=== PATIENT | female | born 1925 | race Caucasian/White ===

== ENCOUNTER 2017-07-29 09:19 | Inpatient (IN) | payer OTHER, BC ==
--- NOTE | 2017-07-29 10:17 | PDOC ---
History of Present Illness - General History Source: Patient Exam Limitations: No Limitations - History of Present Illness Initial Comments: 07/29/17 10:46 The patient is a 89 year old female, with a significant past medical history of HTN, HLD, Gout, Anemia who presents to the emergency department sent in by PCP for low H&H. Patient visited PCP for routine labs one week ago however was called yesterday and was informed of low hemoglobin of 7.4. Patient states she was very active this past weekend however denies any complaints. Patient presents with her daughter to the ED for further evaluation. Upon arrival, vital signs significant for 52 pulse. Patient denies lightheadedness, chest pain, headache or dizziness. Patient denies fever, chills, abdominal pain, nausea, vomit, diarrhea or constipation, bloody stool, melena. Patient denies dysuria, frequency, urgency or hematuria. Allergies: Penicillins Past surgical history: Appendectomy Social history: None PCP: Dr. Davy Duarte <Krystle Judge - Last Filed: 07/29/17 11:10> <Mylene Bain - Last Filed: 07/31/17 08:12> - General Chief Complaint: Blood Transfusion Stated Complaint: LAB VARIANCE (PCP SENT) Time Seen by Provider: 07/29/17 09:45 Past History <Krystle Judge - Last Filed: 07/29/17 11:10> - Past Medical History HTN: Yes Hypercholesterolemia: Yes - Surgical History Appendectomy: Yes Orthopedic Surgery: Yes - Immunization History Immunization Up to Date: Yes - Psycho/Social/Smoking Cessation Hx Anxiety: No Suicidal Ideation: No Smoking Status: No Smoking History: Never smoked Have you smoked in the past 12 months: No Number of Cigarettes Smoked Daily: 0 Information on smoking cessation initiated: No Hx Alcohol Use: No Drug/Substance Use Hx: No Substance Use Type: None <Mylene Bain - Last Filed: 07/31/17 08:12> - Past Medical History Allergies/Adverse Reactions: Allergies Allergy/AdvReac Type Severity Reaction Status Date / Time Penicillins Allergy Mild Rash Verified 07/29/17 09:25 Home Medications: Ambulatory Orders Allopurinol [Zyloprim -] 100 mg PO BID 07/29/17 Aspirin [ASA -] 81 mg PO DAILY 07/29/17 Brimonidine Tartrate [Alphagan 0.15% -] 1 drop OU TID 07/29/17 Calcium Carbonate/Vitamin D3 [Calcium 600+D Softgel] 1 each PO DAILY 07/29/17 Cephalexin [Keflex] 500 mg PO TID 07/29/17 Cholecalciferol (Vitamin D3) [Vitamin D3 -] 2,000 unit PO DAILY 07/29/17 Cyanocobalamin/FA/Pyridoxine [Virt-Sary Tablet] 1 each PO DAILY 07/29/17 Furosemide 20 mg PO DAILY 07/29/17 Hydralazine HCl [Apresoline -] 25 mg PO BID 07/29/17 Metoprolol Succinate [Toprol Xl -] 25 mg PO DAILY 07/29/17 Potassium Chloride [K-Dur -] 10 meq PO DAILY 07/29/17 Rosuvastatin Calcium [Crestor] 5 mg PO DAILY 07/29/17 Valsartan [Diovan] 160 mg PO DAILY 07/29/17 Review of Systems - Review of Systems Able to Perform ROS?: Yes Comments:: 07/29/17 10:46 GENERAL/CONSTITUTIONAL: No fever or chills. No weakness. HEAD, EYES, EARS, NOSE AND THROAT: No change in vision. No ear pain or discharge. No sore throat. GASTROINTESTINAL: No nausea, vomiting, diarrhea or constipation. GENITOURINARY: No dysuria, frequency, or change in urination. CARDIOVASCULAR: No chest pain or shortness of breath. RESPIRATORY: No cough, wheezing, or hemoptysis. MUSCULOSKELETAL: No joint or muscle swelling or pain. No neck or back pain. SKIN: No rash NEUROLOGIC: No headache, vertigo, loss of consciousness, or change in strength/ sensation. ENDOCRINE: No increased thirst. No abnormal weight change. HEMATOLOGIC/LYMPHATIC: No anemia, easy bleeding, or history of blood clots. ALLERGIC/IMMUNOLOGIC: No hives or skin allergy. <Krystle Judge - Last Filed: 07/29/17 11:10> *Physical Exam - Vital Signs Last Vital Signs Temp Pulse Resp BP Pulse Ox 97.6 F 52 L 18 153/63 99 07/29/17 09:25 07/29/17 09:25 07/29/17 09:25 07/29/17 09:25 07/29/17 09:25 - Physical Exam Comments: 07/29/17 11:10 GENERAL: Awake, alert, and fully oriented, in no acute distress HEAD: No signs of trauma EYES: PERRLA, EOMI, sclera anicteric, conjunctiva clear ENT: Auricles normal inspection, hearing grossly normal, nares patent, oropharynx clear without exudates. Moist mucosa NECK: Normal ROM, supple, no lymphadenopathy, JVD, or masses LUNGS: Breath sounds equal, clear to auscultation bilaterally. No wheezes, and no crackles HEART: +Bradycardic. Normal S1 and S2, no murmurs, rubs or gallops ABDOMEN: Soft, nontender, normoactive bowel sounds. No guarding, no rebound. No masses EXTREMITIES: Normal range of motion, no edema. No clubbing or cyanosis. No cords, erythema, or tenderness NEUROLOGICAL: Cranial nerves II through XII grossly intact. Normal speech, normal gait SKIN: Warm, Dry, normal turgor, no rashes or lesions noted. <Krystle Judge - Last Filed: 07/29/17 11:10> - Vital Signs Last Vital Signs Temp Pulse Resp BP Pulse Ox 97.6 F 52 L 18 153/63 99 07/29/17 09:25 07/29/17 09:25 07/29/17 09:25 07/29/17 09:25 07/29/17 09:25 - Physical Exam Comments: RECTAL: No masses. +Brown stool. <Mylene Bain - Last Filed: 07/31/17 08:12> ED Treatment Course - LABORATORY CBC & Chemistry Diagram: 07/29/17 10:10 07/29/17 10:10 - ADDITIONAL ORDERS Additional order review: Laboratory Results 07/29/17 10:10 Sodium 141 Potassium 4.4 Chloride 107 Carbon Dioxide 28 Anion Gap 6 L BUN 24 H D Creatinine 1.2 H Creat Clearance w eGFR 42.30 Random Glucose 81 Calcium 9.2 AST 16 D ALT 16 D Albumin 3.4 07/29/17 10:10 RBC 3.21 L D MCV 74.0 L MCHC 31.0 L RDW 17.9 H D MPV 7.9 Neutrophils % 67.8 Lymphocytes % 19.6 D Monocytes % 9.3 Eosinophils % 2.0 Basophils % 1.3 D <Krystle Judge - Last Filed: 07/29/17 11:10> - LABORATORY CBC & Chemistry Diagram: 07/30/17 07:40 07/30/17 07:40 <Mylene Bain - Last Filed: 07/31/17 08:12> Medical Decision Making - Medical Decision Making Pt with new onset anemia. Anemia workup pending, guaiac negative. D/w Dr. Au for admission. <Mylene Bain - Last Filed: 07/31/17 08:12> *DC/Admit/Observation/Transfer - Attestations Scribe Attestion: 07/29/17 10:46 Documentation prepared by Krystle Judge, acting as medical record technician for Mylene Bain MD <Krystle Judge - Last Filed: 07/29/17 11:10> - Discharge Dispostion Admit: Yes <Mylene Bain - Last Filed: 07/31/17 08:12> Diagnosis at time of Disposition: Anemia Qualifiers: Anemia type: iron deficiency Iron deficiency anemia type: unspecified iron deficiency Qualified Code(s): D50.9 - Iron deficiency anemia, unspecified - Discharge Dispostion Condition at time of disposition: Stable - Referrals
[2017-07-29 10:24] LABS: BASOPHIL 1.3 % (0-2.0); MEAN PLT VOLUME 7.9 fl (7.5-11.1); NEUTROPHILS 67.8 % (42.8-82.8); PLATELET COUNT 292 K/MM3 (134-434); RDW 17.9 % (11.6-15.6); WHITE BLOOD COUNT 8.2 K/mm3 (4.0-10.0)
[2017-07-29 10:42] LABS: ALBUMIN 3.4 g/dl (3.4-5.0); ANION GAP 6 (8-16); CALCIUM 9.2 mg/dL (8.5-10.1); CO2 28 mmol/L (21-32); CREATININE 1.2 mg/dL (0.55-1.02); GLUCOSE,RANDOM 81 mg/dL (74-106); SGOT/AST 16 U/L (15-37); SGPT/ALT 16 U/L (12-78)
[2017-07-29 10:44] LABS: INR 1.04 (0.82-1.09); PROTHROMBIN TIME (PATIENT) 11.4 SEC (9.98-11.88)
[2017-07-29 10:45] LABS: ALK PHOS 45 U/L (45-117); BILIRUBIN,TOTAL 0.3 mg/dL (0.2-1.0); CPK 99 IU/L (26-192); LDH 202 U/L (84-246); TOT PROT 6.7 g/dl (6.4-8.2)
[2017-07-29 10:51] LABS: TROPONIN I 0.02 ng/ml (0.00-0.05)
[2017-07-29 13:57] LABS: URINE APPEARANCE CLOUDY; URINE BILIRUBIN NEGATIVE (NEGATIVE); URINE BLOOD NEGATIVE (NEGATIVE); URINE COLOR LTYELLOW; URINE GLUCOSE (UA) NEGATIVE (NEGATIVE); URINE KETONE NEGATIVE (NEGATIVE); URINE NITRITE NEGATIVE (NEGATIVE); URINE PROTEIN NEGATIVE (NEGATIVE); URINE UROBILINOGEN NEGATIVE mg/dL (0.2-1.0)
[2017-07-29 14:04] LABS: URINE LEUK ESTERASE 3+ (NEGATIVE)
[2017-07-29 14:06] LABS: URINE HYALINE CAST 3 /lpf; URINE MUCUS RARE; URINE RBC 5 /hpf (0-3); URINE WBC 308 /hpf (3-5)
[2017-07-29] MEDS ORDERED: ACETAMINOPHEN 325 MG TABLET (FP) PO PRN (15:11)
[2017-07-29] MEDS ORDERED: ONDANSETRON 4 MG/2 ML VIAL IVPB PRN (15:11)
--- NOTE | 2017-07-29 15:16 | HP ---
Admitting History and Physical - Primary Care Physician PCP: Davy Duarte - Admission Chief Complaint: I feel fine History of Present Illness: Ms Rivers is a very pleasant 89 year old female who comes in after being found to have anemia. She is without complaint and says she feels fine. She denies fevers , chills, lightheadedness, dizziness, chest pain or pressure, shortness of breath, nausea, vomiting, diarrhea, constipation, melena, hematochezia, difficulty or pain on urination, hematuria, or swelling. History Source: Patient Limitations to Obtaining History: No Limitations - Past Medical History Cardiovascular: Yes: HTN, Hyperlipdemia Rheumatology: Yes: Gout - Past Surgical History Past Surgical History: Yes: Joint Replacement (L-TKA) - Smoking History Smoking history: Never smoked Have you smoked in the past 12 months: No Aproximately how many cigarettes per day: 0 - Alcohol/Substance Use Hx Alcohol Use: No History of Substance Use: reports: None - Social History Usual Living Arrangement: Yes: Alone ADL: Independent History of Recent Travel: No Home Medications - Allergies Allergies/Adverse Reactions: Allergies Allergy/AdvReac Type Severity Reaction Status Date / Time Penicillins Allergy Mild Rash Verified 07/29/17 09:25 - Home Medications Home Medications: Ambulatory Orders Allopurinol [Zyloprim -] 100 mg PO BID 07/29/17 Aspirin [ASA -] 81 mg PO DAILY 07/29/17 Brimonidine Tartrate [Alphagan 0.15% -] 1 drop OU TID 07/29/17 Calcium Carbonate/Vitamin D3 [Calcium 600+D Softgel] 1 each PO DAILY 07/29/17 Cephalexin [Keflex] 500 mg PO TID 07/29/17 Cholecalciferol (Vitamin D3) [Vitamin D3 -] 2,000 unit PO DAILY 07/29/17 Cyanocobalamin/FA/Pyridoxine [Virt-Sary Tablet] 1 each PO DAILY 07/29/17 Furosemide 20 mg PO DAILY 07/29/17 Hydralazine HCl [Apresoline -] 25 mg PO BID 07/29/17 Metoprolol Succinate [Toprol Xl -] 25 mg PO DAILY 07/29/17 Potassium Chloride [K-Dur -] 10 meq PO DAILY 07/29/17 Rosuvastatin Calcium [Crestor] 5 mg PO DAILY 08/29/17 Valsartan [Diovan] 160 mg PO DAILY 07/29/17 Family Disease History - Family Disease History Family Disease History: CA: Sister Review of Systems Findings/Remarks: full review of systems obtained, as per HPI and otherwise negative Physical Examination Vital Signs: Vital Signs Temperature 36.9 C 07/29/17 13:40 Pulse Rate 55 L 07/29/17 13:40 Respiratory Rate 18 07/29/17 13:40 Blood Pressure 154/56 07/29/17 13:40 O2 Sat by Pulse Oximetry (%) 97 07/29/17 13:40 Constitutional: Yes: Well Nourished, No Distress, Calm Eyes: Yes: Conjunctiva Clear, EOM Intact, PERRL HENT: Yes: Atraumatic, Normocephalic Cardiovascular: Yes: Regular Rate and Rhythm. No: Gallop, Murmur, Rub Respiratory: Yes: Regular, CTA Bilaterally. No: Rales, Rhonchi, Wheezes Gastrointestinal: Yes: Normal Bowel Sounds, Soft. No: Distention, Tenderness Extremities: Yes: WNL Edema: No Labs: Laboratory Results - last 24 hr 07/29/17 07/29/17 07/29/17 10:10 10:10 10:10 WBC 8.2 RBC 3.21 L D Hgb 7.4 L D Hct 23.7 L D MCV 74.0 L MCH 23.0 L MCHC 31.0 L RDW 17.9 H D Plt Count 292 MPV 7.9 Neutrophils % 67.8 Lymphocytes % 19.6 D Monocytes % 9.3 Eosinophils % 2.0 Basophils % 1.3 D Retic Count INR 1.04 Sodium 141 Potassium 4.4 Chloride 107 Carbon Dioxide 28 Anion Gap 6 L BUN 24 H D Creatinine 1.2 H Creat Clearance w eGFR 42.30 Random Glucose 81 Calcium 9.2 Ferritin 4.450 L Total Bilirubin 0.3 D AST 16 D ALT 16 D Alkaline Phosphatase 45 D LD Total 202 Creatine Kinase 99 Troponin I 0.02 Total Protein 6.7 Albumin 3.4 Urine Color Urine Appearance Urine pH Urine Protein Urine Glucose (UA) Urine Ketones Urine Blood Urine Nitrite Urine Bilirubin Urine Urobilinogen Ur Leukocyte Esterase Urine RBC Urine WBC Ur Epithelial Cells Hyaline Casts Urine Mucus Stool Occult Blood Blood Type Antibody Screen Crossmatch 07/29/17 07/29/17 07/29/17 10:10 10:24 11:37 WBC RBC Hgb Hct MCV MCH MCHC RDW Plt Count MPV Neutrophils % Lymphocytes % Monocytes % Eosinophils % Basophils % Retic Count 1.30 INR Sodium Potassium Chloride Carbon Dioxide Anion Gap BUN Creatinine Creat Clearance w eGFR Random Glucose Calcium Ferritin Total Bilirubin AST ALT Alkaline Phosphatase LD Total Creatine Kinase Troponin I Total Protein Albumin Urine Color Urine Appearance Urine pH Urine Protein Urine Glucose (UA) Urine Ketones Urine Blood Urine Nitrite Urine Bilirubin Urine Urobilinogen Ur Leukocyte Esterase Urine RBC Urine WBC Ur Epithelial Cells Hyaline Casts Urine Mucus Stool Occult Blood Negative Blood Type A POSITIVE Antibody Screen Negative Crossmatch See Detail 07/29/17 13:40 WBC RBC Hgb Hct MCV MCH MCHC RDW Plt Count MPV Neutrophils % Lymphocytes % Monocytes % Eosinophils % Basophils % Retic Count INR Sodium Potassium Chloride Carbon Dioxide Anion Gap BUN Creatinine Creat Clearance w eGFR Random Glucose Calcium Ferritin Total Bilirubin AST ALT Alkaline Phosphatase LD Total Creatine Kinase Troponin I Total Protein Albumin Urine Color Ltyellow Urine Appearance Cloudy Urine pH 7.0 Urine Protein Negative Urine Glucose (UA) Negative Urine Ketones Negative Urine Blood Negative Urine Nitrite Negative Urine Bilirubin Negative Urine Urobilinogen Negative Ur Leukocyte Esterase 3+ H Urine RBC 5 Urine WBC 308 Ur Epithelial Cells Rare Hyaline Casts 3 Urine Mucus Rare Stool Occult Blood Blood Type Antibody Screen Crossmatch Imaging - Results Chest X-ray: Report Reviewed, Image Reviewed Problem List - Problems (1) Anemia Assessment/Plan: -patient presents with newly found microcytic anemia -without symptoms, suspect slowly decreasing over time -admit under observation -transfused -hematology and GI consult Code(s): D64.9 - ANEMIA, UNSPECIFIED Qualifiers: Anemia type: unspecified type Qualified Code(s): D64.9 - Anemia, unspecified (2) Hyperlipidemia Assessment/Plan: -continue crestor Code(s): E78.5 - HYPERLIPIDEMIA, UNSPECIFIED Qualifiers: Hyperlipidemia type: Pure hypercholesterolemia (3) Hypertension Assessment/Plan: -slightly elevated -continue valsartan, hydralazine, toprol xl, and lasix -may elevate more secondary to transfusion Code(s): I10 - ESSENTIAL (PRIMARY) HYPERTENSION Qualifiers: Hypertension type: essential hypertension (4) Gout Assessment/Plan: -not in exacerbation -continue allopurinol Code(s): M10.9 - GOUT, UNSPECIFIED (5) Sterile pyuria Assessment/Plan: -seen on urinalysis -check culture -will not place on antibiotics currently Code(s): N39.0 - URINARY TRACT INFECTION, SITE NOT SPECIFIED
[2017-07-29 16:27] VITALS: BMI 23.9
[2017-07-29] MEDS ORDERED: hydrALAZINE HCL 25 MG TABLET (FP) ONE (16:34)
[2017-07-29] MEDS ORDERED: hydrALAZINE HCL 25 MG TABLET (FP) PO ONE (16:55)
--- NOTE | 2017-07-29 17:14 | EKG ---
Test Reason : Blood Pressure : / mmHG Vent. Rate : 051 BPM Atrial Rate : 051 BPM P-R Int : 420 ms QRS Dur : 086 ms QT Int : 446 ms P-R-T Axes : 074 012 069 degrees QTc Int : 411 ms SINUS BRADYCARDIA WITH 1ST DEGREE A-V BLOCK NONSPECIFIC ST ABNORMALITY ABNORMAL ECG WHEN COMPARED WITH ECG OF 25-FEB-2016 06:52, PERSISTANT ST DEPRESSIONS IN PRECORDIAL LEADS REPEAT EKG IF CLINICALLY INDICATED Confirmed by OTTONIEL TSAI MD ([id number]) on 07/29/2017 5:14:10 PM Referred By: Confirmed By:OTTONIEL TSAI MD
--- NOTE | 2017-07-29 19:43 | PN ---
Progress Note (short form) - Note Progress Note: Consult dictated 89 year old presents with hypochromic ,microcytic anemia with Hct--23.7%. Ferritin -4.45. Additional Fe++ studies pending. Stool guaic negative. Diagnosis - IRON Deficiency Will need GI assessment. Will check TFT's and celiac panel. Will give IV Venofer.
[2017-07-29] MEDS ORDERED: PT OWN MED DRAWER 7, Y5N ONE (20:09)
[2017-07-29] MEDS: BRIMONIDINE TARTRATE 0.15% OPHTHALMIC 5 ML BOTTLE OU SCH (22:35)
[2017-07-29] MEDS: hydrALAZINE HCL 25 MG TABLET (FP) PO SCH (22:37)
[2017-07-29] MEDS: DOCUSATE SODIUM 100 MG CAPSULE (FP) PO SCH (22:38)
[2017-07-29] MEDS: ALLOPURINOL 100 MG TABLET (FP) PO SCH (22:38)
--- NOTE | 2017-07-29 23:05 | CONS ---
DATE OF CONSULTATION: 07/29/2017 HISTORY OF PRESENT ILLNESS: This 89-year-old female enters with hypochromic microcytic anemia. Patient has a low ferritin of less than 5. SOCIAL HISTORY: The patient is , has 2 children. Worked in an office type job. Nonsmoker, nondrinker. No industrial exposures or intoxicants. FAMILY HISTORY: Father of lung cancer, and a brother who of cancer, questionable type. PAST MEDICAL HISTORY: Includes hypertension, hyperlipidemia. Patient denies diabetes, stroke, [place], hepatitis, gallbladder disease, thyroid disease, kidney disease, TB or gout. SURGICAL HISTORY: Left total knee replacement and appendectomy. ALLERGIES: Include PENICILLIN. REVIEW OF SYSTEMS: No headaches, diplopia, epistaxis, dysphagia, shortness of breath, chest pain, palpitations, nausea, vomiting, diarrhea, constipation, melena, dysuria, hematuria, vaginal bleeding. Some arthritic pains, myalgias and arthralgias. CURRENT PHYSICAL EXAMINATION: Vital signs: Weight 131, blood pressure 177/72, pulse 57 regular, respiratory rate 20, afebrile. HEENT: ALKA, EOM intact. Upper partial plate. Papillated tongue. Neck: Supple. No thyromegaly. No cervical supraclavicular nodes. Lungs: Relatively clear to percussion and auscultation. Cardiac: Regular rhythm. Breasts: No dominant masses. Abdomen: Soft. No organomegaly. Extremities: Patient's lower extremities, total knee replacement surgery. LABORATORY: As available. Sodium 141, potassium 4.4, chloride 107, CO2 of 28, BUN 24, creatinine 1.2. Iron studies pending. Ferritin 4.45, bilirubin 0.38, AST 16, ALT 16, alkaline phosphatase 45, LDH 202, protein 6.7, albumin 3.4. WBC 8.2, hematocrit 23.7, hemoglobin 7.4, MCV 74, MCH 23, 293,000 platelets, 68 polycytes, 20 lymphocytes, 9 monocytes, reticulocyte 1.3. Urine 3+ leukocyte esterase, occult blood stool negative. Chest x-ray, moderately enlarged heart. Perihilar increased markings, moderate atelectatic changes right lung base, old right rib fracture. IMPRESSION: An 89-year-old female presents with hypochromic microcytic indices, low ferritin. Diagnosis of iron deficiency anemia. Will need gastrointestinal consultation. Will check celiac panel. Will check thyroid function. Will give IV Venofer as iron studies are currently pending. JANE SMART M.D. [id number]
[2017-07-30 06:09] LABS: HAPTOGLOBIN 277 mg/dL (34-200); SERUM IRON 15 ug/dL (27-139); TOTAL IRON BINDING CAPACITY 400 ug/dL (250-450); TRANSFERRIN 336 mg/dL (200-370); UIBC 385 ug/dL (118-369)
[2017-07-30] MEDS: BRIMONIDINE TARTRATE 0.15% OPHTHALMIC 5 ML BOTTLE OU SCH ×3 (06:21→21:13)
[2017-07-30 07:54] LABS: BASOPHIL 1.1 % (0-2.0); EOSINOPHIL 2.2 % (0-4.5); MCH 24.4 pg (25.7-33.7); MCHC 32.2 g/dl (32.0-36.0); MEAN CELL VOLUME 75.7 fl (80-96); MEAN PLT VOLUME 7.8 fl (7.5-11.1); PLATELET COUNT 250 K/MM3 (134-434); RDW 18.2 % (11.6-15.6); WHITE BLOOD COUNT 7.5 K/mm3 (4.0-10.0)
[2017-07-30 08:16] LABS: ANION GAP 6 (8-16); CALCIUM 8.8 mg/dL (8.5-10.1); CO2 27 mmol/L (21-32); GLUCOSE,RANDOM 93 mg/dL (74-106); MAGNESIUM 2.1 mg/dL (1.8-2.4); PHOSPHOROUS 3.2 mg/dL (2.5-4.9)
[2017-07-30 08:25] LABS: THYROID STIMULATING HORMONE 1.36 uIU/ml (0.358-3.74)
[2017-07-30] MEDS: VALSARTAN 160 MG TABLET (UD) PO SCH (09:11)
[2017-07-30] MEDS: POTASSIUM CHLORIDE TABS 10 MEQ TABLET.ER (FP) PO SCH (09:11)
[2017-07-30] MEDS: DOCUSATE SODIUM 100 MG CAPSULE (FP) PO SCH ×2 (09:11→21:14)
[2017-07-30] MEDS: CHOLECALCIFEROL (VITAMIN D3) 1,000 UNIT TABLET (FP) PO SCH (09:11)
[2017-07-30] MEDS: CALCIUM 500MG/VIT-D 200 UNITS COMBO TABLET (FP) PO SCH (09:11)
[2017-07-30] MEDS: ALLOPURINOL 100 MG TABLET (FP) PO SCH ×2 (09:11→21:14)
[2017-07-30] MEDS: METOPROLOL SUCCINATE 25 MG TAB.SR.24H (FP) PO SCH (09:12)
[2017-07-30] MEDS: PANTOPRAZOLE 40 MG TABLET (FP) PO SCH (09:12)
[2017-07-30] MEDS: FUROSEMIDE 20 MG TABLET (FP) PO SCH (09:12)
[2017-07-30] MEDS: hydrALAZINE HCL 25 MG TABLET (FP) PO SCH ×2 (09:12→21:14)
[2017-07-30] MEDS: [UNRECOGNIZED DRUG - OTHER] PO SCH (09:13)
[2017-07-30] MEDS: POLYETHYLENE GLYCOL 3350 119 GM BTL PO SCH (09:16)
--- NOTE | 2017-07-30 09:46 | CON.GI ---
Consult Consult Specialty:: Gastroenterology Reason for Consultation:: Anemia - History of Present Illness History of Present Illness: 89yo F with history of HTN, HLD, and gout who was sent by her PCP, Dr. Duarte, for a low H/H of 7.4 and 23.7 respectively. Pt states she did not feel any symptoms at the time of initial presentation to the ED. She received 2 transfusions yesterday without any noted reaction. Pt states that she does not remember the last colonoscopy that she received. Only NSAID use is ASA 81mg daily. Denies any other blood thinners or NSAIDs used. Currently denies any lightheadedness, dizziness, abdominal pain, changes in diet, changes in bowel habits, blood noted in stool, urinary complaints including dysuria and polyuria. Pt has never had previous GI bleed or blood transfusion. Denies any previous malignancies PCP: Dr. Duarte Allergy: Penicillin (Mild, Rash) - History Source History Provided By: Patient Limitations to Obtaining History: No Limitations - Past Medical History Cardio/Vascular: Yes: HTN, Hyperlipdemia Rheumatology: Yes: Gout - Past Surgical History Past Surgical History: Yes: Appendectomy, Joint Replacement (L-TKA) - Alcohol/Substance Use Hx Alcohol Use: No History of Substance Use: reports: None - Smoking History Smoking history: Never smoked Have you smoked in the past 12 months: No Aproximately how many cigarettes per day: 0 - Social History ADL: Independent History of Recent Travel: No Home Medications - Allergies Allergies/Adverse Reactions: Allergies Allergy/AdvReac Type Severity Reaction Status Date / Time Penicillins Allergy Mild Rash Verified 07/29/17 09:25 - Home Medications Home Medications: Ambulatory Orders Allopurinol [Zyloprim -] 100 mg PO BID 07/29/17 Aspirin [ASA -] 81 mg PO DAILY 07/29/17 Brimonidine Tartrate [Alphagan 0.15% -] 1 drop OU TID 07/29/17 Calcium Carbonate/Vitamin D3 [Calcium 600+D Softgel] 1 each PO DAILY 07/29/17 Cephalexin [Keflex] 500 mg PO TID 07/29/17 Cholecalciferol (Vitamin D3) [Vitamin D3 -] 2,000 unit PO DAILY 07/29/17 Cyanocobalamin/FA/Pyridoxine [Virt-Sary Tablet] 1 each PO DAILY 07/29/17 Furosemide 20 mg PO DAILY 07/29/17 Hydralazine HCl [Apresoline -] 25 mg PO BID 07/29/17 Metoprolol Succinate [Toprol Xl -] 25 mg PO DAILY 07/29/17 Potassium Chloride [K-Dur -] 10 meq PO DAILY 07/29/17 Rosuvastatin Calcium [Crestor] 5 mg PO DAILY 07/29/17 Valsartan [Diovan] 160 mg PO DAILY 07/29/17 Family Disease History - Family Disease History Family Disease History: CA: Father (Lung Ca), Brother (Stage 4 on dx), Sister Review of Systems - Review of Systems Constitutional: reports: No Symptoms Respiratory: reports: No Symptoms Gastrointestinal: reports: No Symptoms Genitourinary: reports: No Symptoms Neurological: reports: No Symptoms Hematology/Lymphatic: reports: No Symptoms Physical Exam-GI Vital Signs: Vital Signs Temperature 98.0 F 07/30/17 06:00 Pulse Rate 45 L 07/30/17 06:00 Respiratory Rate 18 07/30/17 06:00 Blood Pressure 152/54 07/30/17 06:00 O2 Sat by Pulse Oximetry (%) 96 07/30/17 01:06 Constitutional: Yes: Well Nourished, No Distress, Calm Eyes: Yes: Conjunctiva Clear, EOM Intact, PERRL. No: Sclera Icterus HENT: Yes: Atraumatic, Normocephalic Cardiovascular: Yes: Bradycardia, S1, S2. No: Murmur Respiratory: Yes: Regular, CTA Bilaterally. No: Rales, Rhonchi, SOB, Wheezes Gastrointestinal Inspection: Yes: WNL ...Auscultate: Yes: Normoactive Bowel Sounds ...Palpate: Yes: Soft. No: Hepatomegaly, Splenomegaly, Tenderness, Tenderness, Rebound ...Rectal Exam: Yes: Guaiac Negative, Sphincter Tone Normal Edema: No Peripheral Pulses WNL: Yes Neurological: Yes: Alert, Oriented Psychiatric: Yes: Alert, Oriented Labs: CBC, BMP 07/30/17 07:40 07/30/17 07:40 INR, PTT INR 1.04 (0.82-1.09) 07/29/17 10:10 Imaging - Results Chest X-ray: Image Reviewed EKG: Image Reviewed (Bradycardia noted; existing ST depressions when compared to previous ECG) Problem List - Problems (1) Anemia Assessment/Plan: --Microcytic anemia most likely high component from iron deficiency anemia --Hematology giving Iron --S/P 2U PRBC transfused with appropriate increase in H/H to 9.1 (delta 7.4) --Guaic negative --Discussed possibility of doing EGD or colonoscopy and pt would like to discuss with family. Code(s): D64.9 - ANEMIA, UNSPECIFIED Qualifiers: Anemia type: unspecified type Qualified Code(s): D64.9 - Anemia, unspecified Assessment/Plan ATTENDING PHYSICIAN STATEMENT I saw and evaluated the patient. I reviewed the resident's note and discussed the case with the resident. I agree with the resident's findings and plan as documented. SUBJECTIVE: 89 y/o F sent in by PMD for evaluation of asymptomatic anemia No focal GI complaints OBJECTIVE: Anicteric Hrt RRR + murmur LSB Lungs: CTA b/l Abd: Sft, NT/ND +BS Ext: no edema ASSESSMENT: Iron deficiency anemia Guaiac negative Plan: Disucssed both EGD and colonoscopy with Ms. Rivers to exclude intraluminal pathology such as ulcers, bleeding blood vessels or cancers of the intestinal tract such as colon cancer that may contribute to iron deficiency. We discussed potential risks of the procedure like but not limited to bleeding, perforation, infection, sedation medication effects all of which could be potentially life threatening. She did not consent for the procedures and stated that she wouldf like to think about this option. I advised that she discuss things with her family as well. Please recall if amenable to procedures , otherwise can follow-up in Dr. Christianson's office. [phone] For now: Heme following: giving IV iron Agree with celiac serologies Thank you
[2017-07-30] MEDS ORDERED: IRON SUCROSE INJECTION 100 MG in SODIUM CHLORIDE 95 ML IVPB ONE (10:00)
--- NOTE | 2017-07-30 13:27 | PN ---
Progress Note, Physician Chief Complaint: Ms Rivers says she is feeling better than she did yesterday. No cp, sob, n/v. Says she is more energetic today. - Current Medication List Current Medications: Active Medications Acetaminophen (Tylenol -) 650 mg PO Q4H PRN PRN Reason: FEVER OR PAIN Allopurinol (Zyloprim -) 100 mg PO BID [facility] Last Admin: 07/30/17 09:11 Dose: 100 mg Brimonidine Tartrate (Alphagan 0.15% -) 1 drop OU TID [facility] Last Admin: 07/30/17 06:21 Dose: 1 drop Calcium Carbonate/Cholecalciferol (Os-Isma 500+D -) 1 tab PO DAILY [facility] Last Admin: 07/30/17 09:11 Dose: 1 tab Cholecalciferol (Vitamin D3 -) 2,000 unit PO DAILY [facility] Last Admin: 07/30/17 09:11 Dose: 2,000 unit Docusate Sodium (Colace -) 100 mg PO BID [facility] Last Admin: 07/30/17 09:11 Dose: 100 mg Furosemide (Lasix -) 20 mg PO DAILY [facility] Last Admin: 07/30/17 09:12 Dose: 20 mg Hydralazine HCl (Apresoline -) 25 mg PO BID [facility] Last Admin: 07/30/17 09:12 Dose: 25 mg Metoprolol Succinate (Toprol Xl -) 25 mg PO DAILY [facility] Last Admin: 07/30/17 09:12 Dose: 25 mg Pt Own Medication [ (Virt-Sary Tablet]) 1 each PO DAILY [facility] Last Admin: 07/30/17 09:13 Dose: 1 each Ondansetron HCl (Zofran Injection) 4 mg IVPB Q6H PRN PRN Reason: NAUSEA Pantoprazole Sodium (Protonix -) 40 mg PO DAILY [facility] Last Admin: 07/30/17 09:12 Dose: 40 mg Polyethylene Glycol (Miralax (For Daily Use) -) 17 gm PO DAILY [facility] Last Admin: 07/30/17 09:16 Dose: Not Given Potassium Chloride (K-Dur -) 10 meq PO DAILY [facility] Last Admin: 07/30/17 09:11 Dose: 10 meq Rosuvastatin Calcium (Crestor -) 5 mg PO [facility] Valsartan (Diovan -) 160 mg PO DAILY [facility] Last Admin: 07/30/17 09:11 Dose: 160 mg - Objective Vital Signs: Vital Signs Temperature 36.8 C 07/30/17 10:00 Pulse Rate 58 L 07/30/17 10:00 Respiratory Rate 18 07/30/17 10:00 Blood Pressure 125/60 07/30/17 10:00 O2 Sat by Pulse Oximetry (%) 98 07/30/17 10:00 Constitutional: Yes: Well Nourished, No Distress, Calm Cardiovascular: Yes: Regular Rate and Rhythm. No: Gallop, Murmur, Rub Respiratory: Yes: Regular, CTA Bilaterally. No: Rales, Rhonchi, Wheezes Gastrointestinal: Yes: Normal Bowel Sounds, Soft. No: Distention, Tenderness Extremities: Yes: WNL Edema: No Labs: CBC, BMP 07/30/17 07:40 07/30/17 07:40 INR, PTT INR 1.04 (0.82-1.09) 07/29/17 10:10 Problem List - Problems (1) Anemia Code(s): D64.9 - ANEMIA, UNSPECIFIED Qualifiers: Anemia type: iron deficiency Iron deficiency anemia type: unspecified iron deficiency Qualified Code(s): D50.9 - Iron deficiency anemia, unspecified (2) Hyperlipidemia Code(s): E78.5 - HYPERLIPIDEMIA, UNSPECIFIED Qualifiers: Hyperlipidemia type: Pure hypercholesterolemia (3) Hypertension Code(s): I10 - ESSENTIAL (PRIMARY) HYPERTENSION Qualifiers: Hypertension type: essential hypertension Qualified Code(s): I10 - Essential (primary) hypertension (4) Gout Code(s): M10.9 - GOUT, UNSPECIFIED (5) Sterile pyuria Code(s): N39.0 - URINARY TRACT INFECTION, SITE NOT SPECIFIED Assessment/Plan (1) Anemia Assessment/Plan: -appreciate hematology and GI assistance -iron deficiency anemia -s/p transfusion and iron infusion -case d/w GI, patient considering endoscopy/colonoscopy Code(s): D64.9 - ANEMIA, UNSPECIFIED Qualifiers: Anemia type: unspecified type Qualified Code(s): D64.9 - Anemia, unspecified (2) Hyperlipidemia Assessment/Plan: -continue crestor Code(s): E78.5 - HYPERLIPIDEMIA, UNSPECIFIED Qualifiers: Hyperlipidemia type: Pure hypercholesterolemia (3) Hypertension Assessment/Plan: -controlled -continue valsartan, hydralazine, toprol xl, and lasix Code(s): I10 - ESSENTIAL (PRIMARY) HYPERTENSION Qualifiers: Hypertension type: essential hypertension (4) Gout Assessment/Plan: -not in exacerbation -continue allopurinol Code(s): M10.9 - GOUT, UNSPECIFIED (5) Sterile pyuria Assessment/Plan: -no need for antibiotics currently Code(s): N39.0 - URINARY TRACT INFECTION, SITE NOT SPECIFIED
[2017-07-30] MEDS ORDERED: PT OWN MED DRAWER 7, Y5N ONE ×2 (14:18→20:02)
[2017-07-30] MEDS ORDERED: ROSUVASTATIN CA 5 MG TABLET (FP) PO SCH (22:00)
[2017-07-31] MEDS: BRIMONIDINE TARTRATE 0.15% OPHTHALMIC 5 ML BOTTLE OU SCH ×2 (06:27→14:57)
[2017-07-31 08:53] LABS: BASOPHIL 0.7 % (0-2.0); EOSINOPHIL 2.7 % (0-4.5); MCH 24.2 pg (25.7-33.7); MEAN CELL VOLUME 75.7 fl (80-96); MEAN PLT VOLUME 8.4 fl (7.5-11.1); NEUTROPHILS 71.6 % (42.8-82.8); PLATELET COUNT 253 K/MM3 (134-434); RDW 18.5 % (11.6-15.6)
[2017-07-31 09:19] LABS: ANION GAP 6 (8-16); CALCIUM 9.1 mg/dL (8.5-10.1); CO2 29 mmol/L (21-32); GLUCOSE,RANDOM 93 mg/dL (74-106); MAGNESIUM 2.1 mg/dL (1.8-2.4)
[2017-07-31 09:20] LABS: PHOSPHOROUS 3.3 mg/dL (2.5-4.9)
[2017-07-31] MEDS: CALCIUM 500MG/VIT-D 200 UNITS COMBO TABLET (FP) PO SCH (09:36)
[2017-07-31] MEDS: ALLOPURINOL 100 MG TABLET (FP) PO SCH (09:36)
[2017-07-31] MEDS: VALSARTAN 160 MG TABLET (UD) PO SCH (09:36)
[2017-07-31] MEDS: CHOLECALCIFEROL (VITAMIN D3) 1,000 UNIT TABLET (FP) PO SCH (09:36)
[2017-07-31] MEDS: METOPROLOL SUCCINATE 25 MG TAB.SR.24H (FP) PO SCH (09:36)
[2017-07-31] MEDS: hydrALAZINE HCL 25 MG TABLET (FP) PO SCH (09:36)
[2017-07-31] MEDS: PANTOPRAZOLE 40 MG TABLET (FP) PO SCH (09:36)
[2017-07-31] MEDS: POTASSIUM CHLORIDE TABS 10 MEQ TABLET.ER (FP) PO SCH (09:36)
[2017-07-31] MEDS: DOCUSATE SODIUM 100 MG CAPSULE (FP) PO SCH (09:36)
[2017-07-31] MEDS: FUROSEMIDE 20 MG TABLET (FP) PO SCH (09:36)
[2017-07-31] MEDS: [UNRECOGNIZED DRUG - OTHER] PO SCH (09:37)
[2017-07-31] MEDS: POLYETHYLENE GLYCOL 3350 119 GM BTL PO SCH (09:37)
--- NOTE | 2017-07-31 14:38 | PN ---
Progress Note (short form) - Note Progress Note: Was advised today by Dr. Au that Ms. Eubanks agreed to procedures. this was already after Ms. Rivers ate breakfast and lunch. Bowel prep for tomorrow would likely be sub optimal given that she ate full breakfast and lunch. Would advise colonoscopy after a clear liquid diet. Upper endoscopy could be performed tomorrow followed by colonoscopy either thi coming friday (as there is a three day weekend this weekend) or this can be arranged during follow-up as an outpatient with Dr. Christianson in outpatient setting.
[2017-07-31 15:28] VITALS: BP 120/59; PULSE 55; TEMP 97.9
--- NOTE | 2017-07-31 15:49 | DS ---
Physical Examination Vital Signs: Vital Signs Temperature 36.6 C 07/31/17 14:00 Pulse Rate 55 L 07/31/17 14:00 Respiratory Rate 18 07/31/17 14:00 Blood Pressure 120/59 07/31/17 14:00 O2 Sat by Pulse Oximetry (%) 96 07/31/17 10:00 Constitutional: Yes: Well Nourished, No Distress, Calm Cardiovascular: Yes: Regular Rate and Rhythm. No: Gallop, Murmur, Rub Respiratory: Yes: Regular, CTA Bilaterally. No: Rales, Rhonchi, Wheezes Gastrointestinal: Yes: Normal Bowel Sounds, Soft. No: Distention, Tenderness Extremities: Yes: WNL Edema: No Discharge Summary Reason For Visit: ANEMIA Current Active Problems Anemia (Acute) Gout (Acute) Sterile pyuria (Acute) Hospital Course: (1) Anemia Code(s): D64.9 - ANEMIA, UNSPECIFIED Qualifiers: Anemia type: iron deficiency Iron deficiency anemia type: unspecified iron deficiency Qualified Code(s): D50.9 - Iron deficiency anemia, unspecified (2) Hyperlipidemia Code(s): E78.5 - HYPERLIPIDEMIA, UNSPECIFIED Qualifiers: Hyperlipidemia type: Pure hypercholesterolemia (3) Hypertension Code(s): I10 - ESSENTIAL (PRIMARY) HYPERTENSION Qualifiers: Hypertension type: essential hypertension Qualified Code(s): I10 - Essential (primary) hypertension (4) Gout Code(s): M10.9 - GOUT, UNSPECIFIED (5) Sterile pyuria Code(s): N39.0 - URINARY TRACT INFECTION, SITE NOT SPECIFIED Ms Rivers is a very pleasant 89 year old female who comes in with new onset anemia. She was admitted to the hospital and transfused. She also received IV iron while here. She responded well to the transfusion and the infusion of iron , and remained asymptomatic. GI saw the patient and recommended endoscopy/ colonoscopy, however unfortunately colonoscopy would not be able to be done for another 4 days. Considering risk of remaining in the hospital (hospital acquired infection, decreased mobility) versus stability of patient it would be better for patient to follow up with Dr Duarte and Dr Christianson as an outpatient and she can be brought in for the prep for colonoscopy. 40 minutes spent in preparation of this discharge Condition: Stable - Instructions Diet, Activity, Other Instructions: resume previous diet and activity Referrals: Davy Duarte MD [Primary Care Provider] - Rhonda Christianson MD [Staff Physician] - Disposition: HOME - Home Medications Comprehensive Discharge Medication List: Ambulatory Orders Allopurinol [Zyloprim -] 100 mg PO BID 07/29/17 Brimonidine Tartrate [Alphagan 0.15% -] 1 drop OU TID 07/29/17 Calcium Carbonate/Vitamin D3 [Calcium 600+D Softgel] 1 each PO DAILY 07/29/17 Cholecalciferol (Vitamin D3) [Vitamin D3 -] 2,000 unit PO DAILY 07/29/17 Cyanocobalamin/FA/Pyridoxine [Virt-Sary Tablet] 1 each PO DAILY 07/29/17 Furosemide 20 mg PO DAILY 07/29/17 Hydralazine HCl [Apresoline -] 25 mg PO BID 07/29/17 Metoprolol Succinate [Toprol XL -] 25 mg PO DAILY 07/29/17 Potassium Chloride [K-Dur -] 10 meq PO DAILY 07/29/17 Rosuvastatin Calcium [Crestor] 5 mg PO DAILY 07/29/17 Valsartan [Diovan] 160 mg PO DAILY 07/29/17 Docusate Sodium [Colace -] 100 mg PO BID #60 cap 07/31/17 Ferrous Sulfate 325 mg PO BIDAC #60 tablet 07/31/17 Pantoprazole Sodium [Protonix -] 40 mg PO DAILY #30 tab.ec 07/31/17
[2017-08-03 10:09] LABS: IMMUNOGLOBULIN A QN 134 mg/dL (64-422)
== END 2017-07-31 16:19 | disposition home or self-care (01) | DRG 812 ==
LOC: JER 09:19 → INTOOBSV 13:14 → JERBED 13:14 → UNDOADMOB 13:14 → JERBED 16:00 → J5S 17:20 → OBSVTOIN 07-31 12:29
PROVIDERS: ADMIT Internal Medicine; ATTEND Internal Medicine
DX: D50.9 Iron deficiency anemia, unspecified (principal); N39.0 Urinary tract infection, site not specified; I10 Essential (primary) hypertension; E78.5 Hyperlipidemia, unspecified; M10.9 Gout, unspecified; Z96.652 Presence of left artificial knee joint
CPT/HCPCS: 36415; 36430; 71010-TC; 80048; 80053; 81003; 81015; 82272; 82728; 82784; 83010; 83516; 83540; 83550; 83615; 83735; 84100; 84439; 84443; 84466; 84484; 85025; 85044; 85610; 86850; 86900; 86901; 86922; 87086; 93005; 93010; 97161-GP; 99285-25; G0378; J1756; P9038; P9058